=== PATIENT | male | born 1995 | race Hispanic/Latino ===

== ENCOUNTER 2021-01-06 13:54 | Emergency (ER) | payer OTHER ==
[~2021-01-06] VITALS: Ht 165.1 cm; Wt 94.6 kg
[2021-01-06] MEDS ORDERED: BACTRIM DS TAB1 EACH PO (14:30)
== END 2021-01-06 14:50 | disposition home or self-care (01) ==
LOC: FSED 14:06
DX: Z48.01 Encounter for change or removal of surgical wound dressing (principal)
CPT/HCPCS: 99282